=== PATIENT | female | born 1985 | race Caucasian/White ===

== ENCOUNTER 2016-12-20 00:02 | Inpatient (IN) | payer OTHER ==
[~2016-12-20] VITALS: Ht 157.5 cm; Wt 66.7 kg
[2016-12-20 00:19] VITALS: BP_SYST 134
[2016-12-20] MEDS ORDERED: TERBUTALINE SULFATE 1 MG/ML VIAL SUBCUT ONE (00:45)
[2016-12-20] MEDS ORDERED: LR 1,000 ML IV SCH ×3 (01:01→02:20)
[2016-12-20] MEDS ORDERED: CEFAZOLIN 2 GM IVPB PREMIX 50 ML IV ONE ×2 (01:15→01:16)
[2016-12-20] MEDS ORDERED: CITRIC ACID/SODIUM CITRATE 30 ML UDC PO ONE (01:15)
[2016-12-20 01:24] LABS: BASOPHILS # (AUTO) 0.1 K/uL (0.0-0.2); BASOPHILS % (AUTO) 0.7 % (0.0-2.0); EOSINOPHILS % (AUTO) 0.1 % (0.0-4.0); HEMATOCRIT 30.7 % (36-48); HEMOGLOBIN 10.5 g/dL (12.0-16.0); LYMPHOCYTES # (AUTO) 1.1 K/uL (1.0-5.5); LYMPHOCYTES % (AUTO) 11.1 % (20.5-51.5); MEAN CORPUSCULAR HEMOGLOBIN 33 pg (27-31); MEAN CORPUSCULAR HGB CONC 34 % (32-36); MEAN CORPUSCULAR VOLUME 96 fL (79.0-98.0); MONOCYTES # (AUTO) 0.6 K/uL (0.0-1.0); MONOCYTES % (AUTO) 5.6 % (1.7-9.3); NEUTROPHILS # (AUTO) 8.1 K/uL (1.8-7.7); NEUTROPHILS % (AUTO) 82.5 % (40.0-70.0); PLATELET COUNT (AUTO) 103 K/uL (130-430); RED BLOOD CELL COUNT(AUTO) 3.19 MIL/uL (4.2-6.2); RED CELL DISTRIBUTION WIDTH 12.6 % (9.0-15.0); WHITE BLOOD COUNT (AUTO) 9.9 K/uL (4.8-10.8)
[2016-12-20] MEDS ORDERED: OXYTOCIN/NORMAL SALINE 1,000 ML IV ONE (01:24)
[2016-12-20] MEDS ORDERED: SENNOSIDES/DOCUSATE SODIUM 1 TAB TABLET(SENOKOT-S) PO PRN (01:30)
[2016-12-20] MEDS ORDERED: ACETAMINOPHEN 325 MG TABLET PO PRN (01:30)
[2016-12-20] MEDS ORDERED: ONDANSETRON HCL 4 MG/2 ML VIAL IVP ONE (01:30)
[2016-12-20] MEDS ORDERED: TEMAZEPAM 15 MG CAPSULE PO PRN (01:30)
[2016-12-20] MEDS ORDERED: OXYTOCIN 10 UNIT/ML VIAL IV ONE (01:30)
[2016-12-20] MEDS ORDERED: LR 1,000 ML IV.SOLN IV ONE (01:30)
[2016-12-20] MEDS ORDERED: METHYLERGONOVINE MALEATE 0.2 MG/ML AMP IM ONE (01:30)
[2016-12-20] MEDS ORDERED: LANOLIN 7 GM OINT. TP PRN (01:30)
[2016-12-20] MEDS ORDERED: ePHEDrine sulfate 50 MG/ML VIAL IV ONE (01:30)
[2016-12-20] MEDS ORDERED: BISACODYL 10 MG/SUPPOSITORY RC PRN (01:30)
[2016-12-20] MEDS ORDERED: NS IRRIG SOLN 1000 ML IR ONE (01:30)
[2016-12-20] MEDS ORDERED: MIDAZOLAM HCL 5 MG/5 ML VIAL IVP ONE (01:30)
[2016-12-20] MEDS ORDERED: MEASLES,MUMPS&RUBELLA VACC/PF 12500 UNIT/0.5 ML VIAL SUBQ PRN (01:30)
[2016-12-20] MEDS ORDERED: ANUSOL 1 EA SUPP.RECT (PREPARATION H) RC PRN (01:30)
[2016-12-20] MEDS ORDERED: RHO(D) IMMUNE GLOBULIN/MALTOSE 1500 UNITS/1.3 ML (WINHRO) IM PRN (01:30)
[2016-12-20] MEDS ORDERED: MORPHINE SULFATE 10MG/10ML PF AMP EP ONE (01:30)
[2016-12-20 01:34] LABS: BILIRUBIN,URINE NEGATIVE (NEGATIVE); BLOOD, URINE NEGATIVE (NEGATIVE); CLARITY/URINE CLEAR (CLEAR); COLOR,URINE YELLOW (YELLOW); GLUCOSE,URINE NEGATIVE (NEGATIVE); KETONES,URINE NEGATIVE (NEGATIVE); LEUKOCYTE ESTERASE ,URINE NEGATIVE (NEGATIVE); NITRITE, URINE NEGATIVE (NEGATIVE); PROTEIN URINE NEGATIVE (NEGATIVE); UROBILINOGEN,URINE 0.2 (0.2-1.0)
[2016-12-20] MEDS ORDERED: MEPERIDINE HCL/PF 50 MG/ML AMP IVP PRN ×3 (02:30)
[2016-12-20] MEDS ORDERED: DIPHENHYDRAMINE INJ 50 MG/ML VIAL IM PRN (02:30)
[2016-12-20] MEDS ORDERED: MEPERIDINE HCL/PF 25 MG/ML DISP.SYRIN IVP PRN ×2 (02:30)
[2016-12-20] MEDS ORDERED: ONDANSETRON HCL 4 MG/2 ML VIAL IVP PRN (02:30)
[2016-12-20] MEDS ORDERED: MORPHINE SULFATE 10MG/10ML PF AMP SP SCH (02:30)
[2016-12-20] MEDS ORDERED: METOCLOPRAMIDE HCL 10 MG/2 ML VIAL IVP PRN (02:30)
[2016-12-20] MEDS ORDERED: NALOXONE HCL 0.4 MG/ML AMP (NARCAN) IVP PRN (02:30)
[2016-12-20] MEDS ORDERED: KETOROLAC TROMETHAMINE 60 MG/2 ML VIAL IM PRN (02:30)
[2016-12-20 02:40] VITALS: BP_SYST 106
[2016-12-20] MEDS ORDERED: MILK OF MAGNESIA 30 ML UDC PO PRN (02:45)
[2016-12-20] MEDS ORDERED: DIPHENHYDRAMINE INJ 50 MG/ML VIAL ONE (03:12)
[2016-12-20] MEDS ORDERED: METOCLOPRAMIDE HCL 10 MG/2 ML VIAL ONE (03:19)
[2016-12-20] MEDS ORDERED: TERBUTALINE SULFATE 1 MG/ML VIAL ONE (05:47)
[2016-12-20] MEDS: FERROUS SULFATE 325 MG TABLET.DR PO SCH ×3 (08:56→21:32)
[2016-12-20] MEDS: KETOROLAC TROMETHAMINE 30 MG VIAL IVP PRN ×3 (10:48→22:00)
[2016-12-20] MEDS: IBUPROFEN 600 MG TABLET PO SCH ×2 (12:00→18:00)
[2016-12-20] MEDS: DOCUSATE SODIUM 100 MG CAPSULE PO PRN (22:00)
[2016-12-21] MEDS: KETOROLAC TROMETHAMINE 30 MG VIAL IVP PRN (04:38)
[2016-12-21] MEDS: IBUPROFEN 600 MG TABLET PO SCH ×4 (06:00→17:50)
[2016-12-21] MEDS: SIMETHICONE 80 MG TAB.CHEW PO PRN ×2 (06:17→20:20)
[2016-12-21 07:01] LABS: BASOPHILS % (AUTO) 0.1 % (0.0-2.0); EOSINOPHILS % (AUTO) 0.2 % (0.0-4.0); HEMATOCRIT 26.3 % (36-48); HEMOGLOBIN 8.8 g/dL (12.0-16.0); LYMPHOCYTES # (AUTO) 1.1 K/uL (1.0-5.5); LYMPHOCYTES % (AUTO) 12.1 % (20.5-51.5); MEAN CORPUSCULAR HEMOGLOBIN 32 pg (27-31); MEAN CORPUSCULAR HGB CONC 33 % (32-36); MEAN CORPUSCULAR VOLUME 96 fL (79.0-98.0); MONOCYTES # (AUTO) 0.7 K/uL (0.0-1.0); MONOCYTES % (AUTO) 7.5 % (1.7-9.3); NEUTROPHILS % (AUTO) 80.1 % (40.0-70.0); PLATELET COUNT (AUTO) 125 K/uL (130-430); RED BLOOD CELL COUNT(AUTO) 2.74 MIL/uL (4.2-6.2); RED CELL DISTRIBUTION WIDTH 12.8 % (9.0-15.0); WHITE BLOOD COUNT (AUTO) 8.8 K/uL (4.8-10.8)
[2016-12-21] MEDS: FERROUS SULFATE 325 MG TABLET.DR PO SCH ×3 (09:31→20:20)
[2016-12-21] MEDS: HYDROcodone/ACETAMIN 5-325 MG TAB (NORCO/ VICODIN) PO PRN ×3 (09:34→20:20)
[2016-12-21] MEDS: DOCUSATE SODIUM 100 MG CAPSULE PO PRN ×2 (11:59→20:21)
[2016-12-22] MEDS: IBUPROFEN 600 MG TABLET PO SCH ×4 (00:13→18:01)
[2016-12-22] MEDS: HYDROcodone/ACETAMIN 5-325 MG TAB (NORCO/ VICODIN) PO PRN ×4 (04:04→21:18)
[2016-12-22] MEDS: FERROUS SULFATE 325 MG TABLET.DR PO SCH ×3 (10:30→21:17)
[2016-12-22] MEDS: SIMETHICONE 80 MG TAB.CHEW PO PRN (10:30)
[2016-12-23] MEDS: IBUPROFEN 600 MG TABLET PO SCH ×2 (00:24→05:20)
== END 2016-12-23 10:20 | disposition home or self-care (01) | DRG 766 ==
LOC: SPU 00:02
PROVIDERS: ADMIT Obstetrics & Gynecology; ATTEND Obstetrics & Gynecology
PROC: 0DNW0ZZ Release Peritoneum, Open Approach (ICD-10-PCS; 2016-12-20)
PROC: 10D00Z1 Extraction of Products of Conception, Low, Open Approach (ICD-10-PCS; principal; 2016-12-20 07:30)
DX: O34.211 Maternal care for low transverse scar from previous cesarean delivery (principal); O99.62 Diseases of the digestive system complicating childbirth; D64.9 Anemia, unspecified; K66.0 Peritoneal adhesions (postprocedural) (postinfection); O99.02 Anemia complicating childbirth; Z37.0 Single live birth; Z3A.39 39 weeks gestation of pregnancy
CPT/HCPCS: 36415; 81002-TC; 81003; 85025; 86592; 86886; 86900; 86901; 94760; J0690; J1200; J1885; J2210; J2250; J2274; J2405; J2590; J2765; J3105; J7120